=== PATIENT | female | born 1985 | race African-American/Black ===

== ENCOUNTER 2018-01-07 07:42 | Inpatient (IN) | payer OTHER ==
[~2018-01-07] VITALS: Ht 154.9 cm; Wt 85.7 kg
[2018-01-07] VITALS (13 sets, daily range): BP systolic 98–134; BP diastolic 54–85
[2018-01-07 10:21] LABS: BASOPHIL (%) 0.3 % (0-1); EOSINOPHIL (%) 3.2 % (0-5); EOSINOPHIL COUNT 0.3 K/uL (0-0.3); HEMATOCRIT 41.9 % (36.0-46.0); HEMOGLOBIN 13.8 G/DL (11.9-15.5); IMMATURE GRANULOCYTE (%) 0.7 % (0.0-0.7); LYMPHOCYTE (%) 24.2 % (15-42); LYMPHOCYTE COUNT 2.4 K/uL (1.0-2.8); MCH 27.3 PG (29.0-34.0); MCHC 32.9 G/DL (30.0-36.0); MONOCYTE (%) 9.3 % (3-12); MONOCYTE COUNT 0.9 K/uL (0-0.8); NEUTROPHIL (%) 62.3 % (45-76); NEUTROPHIL COUNT 6.3 K/uL (1.8-6.4); PLATELET COUNT 194 K/uL (156-360); RBC DIS.WIDTH-CV 16.1 % (11.8-14.6); RBC DIS.WIDTH-SD 47.7 % (39-53); RED BLOOD COUNT 5.05 M/uL (3.80-5.20)
[2018-01-08] VITALS (24 sets, daily range): BP systolic 102–139; BP diastolic 61–87
[2018-01-09] VITALS (10 sets, daily range): BP systolic 111–137; BP diastolic 72–87
[2018-01-09 09:04] LABS: BASOPHIL (%) 0.2 % (0-1); EOSINOPHIL (%) 1.5 % (0-5); EOSINOPHIL COUNT 0.2 K/uL (0-0.3); HEMATOCRIT 35.2 % (36.0-46.0); IMMATURE GRANULOCYTE (%) 0.5 % (0.0-0.7); LYMPHOCYTE (%) 16.1 % (15-42); MCH 27.5 PG (29.0-34.0); MCHC 32.7 G/DL (30.0-36.0); MCV 84.2 FL (83-99); MONOCYTE (%) 8.7 % (3-12); MONOCYTE COUNT 1.1 K/uL (0-0.8); PLATELET COUNT 175 K/uL (156-360); RBC DIS.WIDTH-CV 15.9 % (11.8-14.6); RBC DIS.WIDTH-SD 48.6 % (39-53); RED BLOOD COUNT 4.18 M/uL (3.80-5.20); WHITE BLOOD COUNT 12.4 K/uL (4.1-10.2)
[2018-01-09 09:05] LABS: HEMOGLOBIN 11.5 G/DL (11.9-15.5)
[2018-01-09 14:20] LABS: HEMATOCRIT 31.7 % (36.0-46.0); HEMOGLOBIN 10.8 G/DL (11.9-15.5); MCH 27.1 PG (29.0-34.0); MCHC 34.1 G/DL (30.0-36.0); RBC DIS.WIDTH-CV 15.4 % (11.8-14.6); RBC DIS.WIDTH-SD 44.1 % (39-53); RED BLOOD COUNT 3.99 M/uL (3.80-5.20); WHITE BLOOD COUNT 10.3 K/uL (4.1-10.2)
[2018-01-09 14:30] LABS: MCV 79.4 FL (83-99)
[2018-01-10 07:02] LABS: HEMATOCRIT 32.8 % (36.0-46.0); MCH 27.7 PG (29.0-34.0); MCHC 33.5 G/DL (30.0-36.0); MCV 82.6 FL (83-99); PLATELET COUNT 154 K/uL (156-360); RBC DIS.WIDTH-CV 15.3 % (11.8-14.6); RBC DIS.WIDTH-SD 45.8 % (39-53); RED BLOOD COUNT 3.97 M/uL (3.80-5.20); WHITE BLOOD COUNT 14.7 K/uL (4.1-10.2)
[2018-01-10 07:29] VITALS: BP 120/71
[2018-01-10 10:37] VITALS: BP 119/70
[2018-01-10 16:05] VITALS: BP 112/72
[2018-01-10 22:49] VITALS: BP 113/71
[2018-01-11] MEDS ORDERED: IBUPROFEN800 MG PO (08:05)
[2018-01-11] MEDS ORDERED: ENDOCET 5-3251 EACH PO (08:05)
== END 2018-01-11 10:45 | disposition home or self-care (01) | DRG 766 ==
LOC: LDRP-OP → 2WEST 07:43 → LDRP-OP 01-24 15:44
PROVIDERS: Advanced Practice Midwife; Obstetrics & Gynecology
PROC: 3E0P7VZ Introduction of Hormone into Female Reproductive, Via Natural or Artificial Opening (ICD-10-PCS; 2018-01-07)
PROC: 3E033VJ Introduction of Other Hormone into Peripheral Vein, Percutaneous Approach (ICD-10-PCS; 2018-01-07)
PROC: 00HU33Z Insertion of Infusion Device into Spinal Canal, Percutaneous Approach (ICD-10-PCS; principal; 2018-01-08)
PROC: 10D00Z1 Extraction of Products of Conception, Low, Open Approach (ICD-10-PCS; principal; 2018-01-08)
PROC: 3E0R3BZ Introduction of Anesthetic Agent into Spinal Canal, Percutaneous Approach (ICD-10-PCS; principal; 2018-01-08)
PROC: 10907ZC Drainage of Amniotic Fluid, Therapeutic from Products of Conception, Via Natural or Artificial Opening (ICD-10-PCS; principal; 2018-01-08)
DX: O48.0 Post-term pregnancy (principal); Z3A.41 41 weeks gestation of pregnancy; Z37.0 Single live birth; O62.0 Primary inadequate contractions; O99.824 Streptococcus B carrier state complicating childbirth; O75.89 Other specified complications of labor and delivery; E66.9 Obesity, unspecified; O99.214 Obesity complicating childbirth; O34.13 Maternal care for benign tumor of corpus uteri, third trimester; D25.9 Leiomyoma of uterus, unspecified; Z68.28 Body mass index [BMI] 28.0-28.9, adult
CPT/HCPCS: 76856; 85025; 85027; 86850; 86900; 86901; C1755; G0378; J0595; J0690; J2175; J2270; J2274; J2400; J2405; J2540; J3010; J7120